=== PATIENT | female | born 1995 | race African-American/Black ===

== ENCOUNTER 2023-06-06 22:08 | Outpatient (CLI) | payer OTHER ==
[~2023-06-06] VITALS: Ht 162.6 cm; Wt 91.8 kg
[~2023-06-06 22:08] MED LIST: PRILOSEC 20MG20 MG PO; PROAIR DIGIHAL90 MCG IH; SPRITAM500 MG PO; TUMS500 MG; ZOLOFT 50MG50 MG PO
--- NOTE | 2023-06-06 22:20 | NUR ---
G1 at 39 weeks and 3 days arrives to unit with complaint of contractions. Pt states she is having very strong contractions about every 10 minutes started around 2000 tonight. Pt breathing through one contraction during assessment, firm to palpation. Pt denies loss of fluid or vaginal bleeding. Reports good movement. Pt has a history of epilepsy and has an aneurysm which is stable and she is cleared through neurology for a vaginal delivery. Pt reports having lots of pelvic floor pain/pressure. Pt oriented to room, call light within reach, bed in low and locked position. Clean gown on. US and toco explained and applied. Admission assessment started. Vitals obtained. SVE closed/thick/high. Reviewed plan of care.
--- NOTE | 2023-06-06 22:46 | NUR ---
RN to bedside. Much movement audible with deceleration noted after contraction. Pt unaware of contraction and appears to be resting comfortably in bed. Repositioned to wedge left.
[2023-06-06 23:00] VITALS: BP 115/68; PULSE 88; TEMP 98.6
[2023-06-06 23:30] VITALS: PULSE 85
--- NOTE | 2023-06-06 23:45 | NUR ---
RN to bedside. Pt states she has had 2 stonger contractions. SVE unchanged from previous exam. Category 1 FHR tracing obtained.
[2023-06-07] VITALS: PULSE 91
--- NOTE | 2023-06-07 00:10 | NUR ---
Discharge instructions reviewed with patient and spouse. verbalized understanding. Educated on labor precautions. Pt seen off unit by wheelchair per her request with belongings.
[2023-06-12] MEDS ORDERED: KEPPRA 500MG500 MG PO (14:46)
[2023-06-12] MEDS ORDERED: BACTROBAN15 GM TOP (14:47)
[2023-06-12] MEDS ORDERED: CEPHALEXIN500 M1 PO (14:48)
[2023-06-13] MEDS ORDERED: IBU600 MG PO (09:31)
[2023-06-13] MEDS ORDERED: ROXICODONE 55 MG/TAB PO (09:32)
[2023-06-13] MEDS ORDERED: ZOLOFT 50MG50 MG PO (09:32)
== END 2023-06-07 00:10 | disposition home or self-care (01) ==
LOC: LDRO 22:08 → LDR 22:52 → LDRO 06-07 00:10
DX: O47.1 False labor at or after 37 completed weeks of gestation (principal); Z3A.39 39 weeks gestation of pregnancy
CPT/HCPCS: OP